=== PATIENT | female | born 1960 | race Caucasian/White ===

== ENCOUNTER 2016-07-30 08:30 | Inpatient (IN) | payer BC ==
--- NOTE | 2016-07-19 17:21 | HP ---
HISTORY AND PHYSICAL: DATE OF ADMISSION/SURGERY: 07/30/16 DATE OF OFFICE VISIT: 07/19/16 SURGEON: Natacha Nova MD PROCEDURE: Right total hip arthroplasty. CHIEF COMPLAINT: Right hip pain. HISTORY OF PRESENT ILLNESS: Ms. Eric is a 56-year-old female with complaints of right hip pain secondary to advanced osteoarthritis. She has failed conservative management and has elected to pr oceed with a right total hip arthroplasty. The surgery is scheduled for 07/30/16. PAST MEDICAL HISTORY: Osteoarthritis, breast cancer. PAST SURGICAL HISTORY: Left-sided mastectomy, right knee arthroscopy, x2. CURRENT MEDICATIONS: 1. Exemestane 25 mg once a day. 2. Meloxicam. 3. Oxycodone. ALLERGIES: To SHELLFISH. FAMILY HISTORY: Lymphoma and Alzheimer's. SOCIAL HISTORY: She is a 56-year-old female. She lives with her . 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 She does not smoke or use drugs. Uses occasional alcohol. REVIEW OF SYSTEMS: A complete 14-point review of systems is reviewed with the patient, all is negat pieter or noncontributory. PHYSICAL EXAMINATION GENERAL: She is well-developed, well-nourished, in no acute distress. VITAL SIGNS: She stands 5 feet and 3 inches tall, weighs 160 pounds. Her blood pressure 132/82 and her heart rate is 85. HEENT: She is normocephalic, atraumatic. NECK: Supple. No palpable lymph nodes. Trachea is midline. PULMONARY: Lungs are clear to auscultation bilaterally. No wheezes, rhonchi, or rales. CARDIO: Regular rate and rhythm. Strong S1 and S2. No murmurs, gallops, or rubs. ABDOMEN: Soft, nontender, nondistended. MUSCULOSKELETAL: Right lower extremity, the skin is intact. She has limited range of motion with i nternal and external rotation of the right hip, and walks with an antalgic-type gait. She is neurov ascularly intact with intact sensation. NEUROLOGICAL: She is alert and oriented x3. Cranial nerves II through XII are intact. ASSESSMENT AND PLAN: Ms. Eric is a 56-year-old female with complaints of right hip pain secon wanda to advanced osteoarthritis. She has failed conservative management and elected to proceed with a right total hip arthroplasty scheduled for 07/30/16. Coumadin was sent to her pharmacy today for postoperative DVT prophylaxis. She was instructed not to take this medication prior to the surgery . She currently has a prescription for both Percocet and Colace, so those prescriptions were not royal ewed at today's visit. She will follow up with Dr. Nova 2 weeks after the surgery. CHRIS KAUFMAN [id number]/[facility] #: [id number]
--- NOTE | 2016-08-26 22:56 | HP ---
HISTORY AND PHYSICAL: DATE OF ADMISSION/SURGERY: 09/03/16 DATE OF OFFICE VISIT: 08/26/16 SURGEON: Natacha Nova MD PROCEDURE: Right total hip arthroplasty. CHIEF COMPLAINT: Hip pain. HISTORY OF PRESENT ILLNESS: Ms. Eric is a 56-year-old female with complaints of right hip pain secondary to advanced osteoarthritis. She has failed conservative management and has elected to proceed with a right total hip arthroplasty, which is scheduled for 09/03/16. PAST MEDICAL HISTORY: Osteoarthritis, breast cancer. PAST SURGICAL HISTORY: Left mastectomy, right knee arthroscopy, x2. CURRENT MEDICATIONS: 1. Exemestane. 2. Meloxicam. 3. Oxycodone. ALLERGIES: SHELLFISH. FAMILY HISTORY: Lymphoma and Alzheimer's. SOCIAL HISTORY: She is a 56-year-old female. She lives with her . 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 She does not smoke or use drugs. She uses occasional alcohol. REVIEW OF SYSTEMS: A complete 14-point review of systems was reviewed with the patient, all is negative and noncontributory. PHYSICAL EXAMINATION GENERAL: She is well developed, well nourished, in no acute distress. VITAL SIGNS: She stands 5 feet 3 inches tall, weighs 165 pounds. Her blood pressure is 136/64, heart rate 68. HEENT: She is normocephalic, atraumatic. NECK: Supple. No palpable lymph nodes. Trachea is midline. PULMONARY: The lungs are clear to auscultation bilaterally. No wheezes, rhonchi, or rales. CARDIO: Regular rate and rhythm. Strong S1, S2. No murmurs, gallops, or rubs. ABDOMEN: Soft, nontender, nondistended. NEUROLOGIC: She is alert and oriented x3. Cranial nerves II through XII are intact. MUSCULOSKELETAL: Right lower extremity, the skin is intact. She has decreased range of motion with internal and external rotation of her right hip. She walks with an antalgic-type gait. She is overall neurovascularly intact. ASSESSMENT AND PLAN: Ms. Eric is a 56-year-old female with complaints of right hip pain secondary to advanced osteoarthritis. She has failed conservative management and has elected to proceed with a right total hip arthroplasty, which is scheduled for 09/03/[address] Nova discussed the risks and benefits of the surgery with her at today's visit and all of her questions were answered. Coumadin and Percocet were sent to her pharmacy for post-operative DVT prophylaxis and pain control. Colace was also sent to help prevent constipation. She will see Dr. Nova back 14 days after the surgery. CHRIS KAUFMAN [id number]/[facility] #: [id number] MTDMarisol
[2016-09-03] MEDS ORDERED: Famotidine IV* 10 MG/ML 2 ML (20 mg) IV ONE (06:00)
[2016-09-03] MEDS ORDERED: Dexamethasone IV* 4 MG/ML 1 ML (4 MG) IV SLOW PU ONE (06:00)
[2016-09-03] MEDS ORDERED: Buffered Lidocaine 1% SYRIN* 3 ML/SYR SYRINGE INTRADERM ONE (06:00)
[2016-09-03] MEDS ORDERED: ceFAZolin 2 GM PREMIX(*) 2 GM/50 ML BAG IVPB ONE (06:59)
[2016-09-03] MEDS ORDERED: Famotidine IV* 10 MG/ML 2 ML (20 mg) ONE (06:59)
[2016-09-03] MEDS ORDERED: Dexamethasone IV* 4 MG/ML 1 ML (4 MG) ONE (06:59)
[2016-09-03] MEDS ORDERED: HYDROmorphone* 1 MG/ML 1 ML SYR ONE ×2 (07:23→09:02)
[2016-09-03] MEDS ORDERED: fentaNYL* 50 MCG/ML 2 ML VIAL (100 MCG VIAL) ONE ×3 (07:23→10:23)
[2016-09-03] MEDS ORDERED: Morphine PF AMP (0.5MG/ML)* 5 MG/10 ML AMP ONE (07:24)
[2016-09-03] MEDS ORDERED: Midazolam* 1 MG/ML 2 ML VIAL (2 MG) ONE (07:24)
[2016-09-03] MEDS ORDERED: Dexmedetomidine* 200 MCG/2 ML 2 ML VIAL ONE (07:27)
[2016-09-03] MEDS ORDERED: Naloxone* 0.4 MG/ML 1 ML VIAL IV PRN (10:40)
[2016-09-03] MEDS ORDERED: oxyCODONE/Acetamin 5/325 MG* TAB PO PRN (10:40)
[2016-09-03] MEDS ORDERED: fentaNYL* 50 MCG/ML 2 ML VIAL (100 MCG VIAL) IV PRN (10:40)
[2016-09-03] MEDS ORDERED: Ondansetron INJ* 2 MG/ML VIAL IV PRN ×2 (10:40)
[2016-09-03] MEDS ORDERED: PROCHLORPERAZINE INJ 5 MG/ML 2 ML VIAL IV PRN ×2 (10:40)
[2016-09-03] MEDS ORDERED: DiMENhydriNATE IV* 50 MG/ML VIAL IV PUSH PRN ×2 (10:40)
[2016-09-03] MEDS ORDERED: diPHENhydraMINE IV* 50 MG/ML 1 ml VIAL (BENADRYL) IV PRN (10:40)
[2016-09-03] MEDS ORDERED: Nalbuphine* 20 MG/ML 1 ML VIAL IV PRN (10:40)
[2016-09-03] MEDS ORDERED: LACTULOSE* 30 ML UDC PO PRN (10:45)
[2016-09-03] MEDS ORDERED: Acetaminophen TAB* 325 MG PO PRN (10:45)
[2016-09-03] MEDS ORDERED: Magnesium Hydroxide LIQ* 30 ML UDC PO PRN (10:45)
[2016-09-03] MEDS ORDERED: Bisacodyl SUPP* 10 MG SUPP PR PRN (10:45)
[2016-09-03] MEDS ORDERED: Morphine INJ* 2 MG/ML 1 ML SYRINGE IV PRN (10:45)
[2016-09-03] MEDS ORDERED: Polyethylene Glycol 3350* 17 GM PACKET PO PRN (10:45)
[2016-09-03] MEDS: Scopolamine 1.5 mg* PATCH TRANSDERM SCH ×2 (10:50→11:20)
[2016-09-03] MEDS ORDERED: Scopolomine PATCH Remove* 1 NOTE MISC PATCH OFF SCH (11:00)
--- NOTE | 2016-09-03 11:16 | RAD ---
HISTORY: Right hip replacement COMPARISONS: June 03, 2016 VIEWS: 1, intraoperative portable view of the right hip at 9:40 AM FINDINGS: Single portable intraoperative view of the right hip demonstrates a right hip plasty with temporal femoral sizing component. IMPRESSION: PORTABLE INTRAOPERATIVE VIEW OF THE RIGHT HIP DURING HIP ARTHROPLASTY
[2016-09-03] MEDS ORDERED: Scopolamine 1.5 mg* PATCH ONE (11:17)
[2016-09-03] MEDS ORDERED: Ondansetron INJ* 2 MG/ML VIAL ONE (11:17)
--- NOTE | 2016-09-03 11:41 | RAD ---
HISTORY: Status post right hip arthroplasty COMPARISONS: June 03, 2016 VIEWS: 3, Frontal view of the pelvis with frontal and frog-leg views of the right hip FINDINGS: BONE DENSITY: Normal. BONES: The patient is status post right hip arthroplasty. There is no hardware failure or osteolysis. JOINTS: The patient is status post right hip arthroplasty. ALIGNMENT: There is no dislocation. SOFT TISSUES: There is post surgical change to the soft tissue OTHER FINDINGS: None. IMPRESSION: STATUS POST RIGHT HIP ARTHROPLASTY
[2016-09-03] MEDS ORDERED: DiMENhydriNATE IV* 50 MG/ML VIAL ONE (11:43)
[2016-09-03] MEDS: ceFAZolin 1 GM in Dextrose (*) 1 GM/50 ML BAG IVPB SCH (16:44)
[2016-09-03] MEDS ORDERED: Warfarin TAB(*) 6 MG PO SCH (17:00)
[2016-09-03] MEDS: Docusate CAP* 100 MG PO SCH (19:38)
[2016-09-04] MEDS: ceFAZolin 1 GM in Dextrose (*) 1 GM/50 ML BAG IVPB SCH ×2 (00:09→07:32)
[2016-09-04] MEDS ORDERED: oxyCODONE TAB* 5 MG TAB PO PRN (02:40)
[2016-09-04] MEDS ORDERED: Ondansetron TAB* 4 MG PO PRN (02:40)
[2016-09-04] MEDS ORDERED: diPHENhydraMINE IV* 50 MG/ML 1 ml VIAL (BENADRYL) IV PRN (02:40)
[2016-09-04] MEDS ORDERED: Ondansetron INJ* 2 MG/ML VIAL IV PRN (02:40)
[2016-09-04] MEDS ORDERED: oxyCODONE/Acetamin 5/325 MG* TAB PO PRN (02:40)
[2016-09-04] MEDS: oxyCODONE/Acetamin 5/325 MG* TAB PO PRN ×5 (02:43→20:24)
[2016-09-04 07:42] LABS: Hematocrit 36 % (35-47)
[2016-09-04 08:41] LABS: BUN/Creatinine Ratio 16.9 (8-20); EGFR African American 91.1 (>60); EGFR Non-African American 70.9 (>60)
--- NOTE | 2016-09-04 09:07 | PN ---
Progress Note - Progress Note SOAP: Subjective: []Patient seen OOB in chair. Doing well, pain well managed. No complaints of dizziness, SOB or CP. Objective: [] Vital Signs Temp 98.3 F 09/04/16 07:08 Pulse 62 09/04/16 07:08 Resp 16 09/04/16 07:31 BP 125/62 09/04/16 07:08 Pulse Ox 99 09/04/16 07:08 Intake & Output 09/03/16 09/04/16 09/04/16 18:59 06:59 18:59 Intake Total 2400 2490 Output Total 650 1350 Balance 1750 1140 Weight 166 lb 3.2 oz Intake: IV Fluids 2400 1662 LR 2400 1662 IVPB 108 Kefzol 108 Oral 720 Output: Brown 400 1350 Estimated Blood Loss 250 Laboratory Results - last 24 hr 09/04/16 09/04/16 09/04/16 07:14 07:16 07:16 Hgb 12.0 Hct 36 INR (Anticoag Therapy) 1.08 Sodium 138 Potassium 4.0 Chloride 105 Carbon Dioxide 27 Anion Gap 6 BUN 14 Creatinine 0.83 Est GFR ( Amer) 91.1 Est GFR (Non-Af Amer) 70.9 BUN/Creatinine Ratio 16.9 Glucose 96 Calcium 9.0 Right hip dressing with 2 small areas of bloody drainage calf is soft and non tender +DF/PF right foot neuro intact distally Assessment: []s/p Right total hip arthroplasty POD #1 Plan: []PT/OT WBAT Right LE Coumadin with Lovenox bridge, 6 mg today Home Friday
[2016-09-04] MEDS: Docusate CAP* 100 MG PO SCH ×2 (09:14→20:24)
[2016-09-04] MEDS: EXEMESTANE 25 MG PO SCH (09:14)
[2016-09-04] MEDS: Enoxaparin(*) 30 MG/0.3 ML SYR SUBCUT SCH (09:15)
[2016-09-04] MEDS ORDERED: Warfarin TAB(*) 6 MG PO SCH (17:00)
--- NOTE | 2016-09-05 00:46 | OP ---
DATE OF OPERATION: 09/03/16 - ROOM #342 DATE OF : 58 SURGEON: Natacha Nova MD FIRE PROTECTION SPECIALIST: CHRIS Pastor ANESTHESIOLOGIST: Jerad Larkin MD ANESTHESIA: Spinal. PRE-OP DIAGNOSIS: Severe end-stage degenerative osteoarthritis of the right hip joint. POST-OP DIAGNOSIS: Severe end-stage degenerative osteoarthritis of the right hip joint. OPERATIVE PROCEDURE: Right total hip arthroplasty. COMPLICATIONS: None. ESTIMATED BLOOD LOSS: 300 cc. SPECIMEN: Femoral head and acetabular reaming, sent to pathology. HARDWARE USED: This is uncemented Kianna total hip arthroplasty hardware. For the cup, a Tritanium hemispherical cluster hole shell 50D, 120 mm cancellous bone screw. For the liner, a Trident X3 0-degree polyethylene insert 32D. For the stem, an Accolade TMZF size 0, 132-degree neck. For the head, a Biolox delta ceramic V40 femoral head, 32 +0. BRIEF HISTORY/INDICATIONS: Ms. Eric is a 56-year-old female with 1 year of severe increasing right hip pain. She failed conservative treatments with antiinflammatories, pain medication, and physical therapy. Radiographs confirmed [id number] osteoarthritis of the right hip joint. Due to continued pain and decreased quality of life, she elected to undergo a right total hip arthroplasty. Informed consent was obtained from the patient. She understood the risks of the procedure included but were not limited to bleeding, infection , damage to nearby structures, continued pain, need for further surgery, intraoperative fracture, dislocation, hardware failure or loosening, nerve palsy , stroke, heart attack, blood clot, and . She wished to proceed. INTRAOPERATIVE FINDINGS: The patient was found to have complete loss of cartilage along the femoral head and acetabulum. Significant osteophyte formation in the acetabulum. DESCRIPTION OF PROCEDURE: Ms. Eric was identified in the preanesthesia unit. Her right lower extremity was marked as the correct operative side. Informed consent was signed and placed in the chart. The patient was taken to the operating room and placed under spinal anesthesia. A Brown catheter was placed. She was placed in the left lateral decubitus position on the peg board and all bony prominences were well padded. The right lower extremity was prepped and draped in the usual sterile fashion. Preop time-out was made to correctly identify the patient, side, and site. Appropriate perioperative antibiotics were given within 1 hour of incision. A 12-cm posterior hip incision was made with a #10 blade and carried down to the lateral fascial layer. Lateral fascia was incised in line with the skin incision. A Charnley retractor was placed. Posterior aspect of the hip joint was now visualized. The conjoined and piriformis tendons were identified and elevated off the posterolateral femur using electro-cautery. These tendons were tagged with two #5 Ethibond's. Next, the electrocautery was used to make a standard posterolateral capsular flap and this was also tagged with two #5 Ethibond's. The hip was carefully dislocated. Femoral head had complete loss of cartilage. Lesser trochanter to center of the femoral head measured 50 mm. Oscillating saw was used to make the appropriate femoral neck cut. The femur was carefully retracted anteriorly. After appropriate placement of retractor, the acetabulum was visualized. A long-handled knife was used to remove any remaining labrum from the acetabular rim. The acetabulum was sequentially reamed up to a size 49. There was a good bleeding bone bed. The 49 trial had good fit. Final implant chosen was a Tritanium 50D cluster hole shell. This was impacted into the acetabulum without difficulty. Satisfactory anteversion abduction angle and stability were obtained. A 120-mm screw was placed in the superoposterior quadrant. Trident X3 0-degree liner 32D was chosen. This was impacted into the acetabulum without difficulty. Stability of the liner was checked and rechecked and noted to be stable. Attention was next turned to the preparation of the femur. Proximal femur was presented and a canal finder was used to enter the proximal femur. A size 0 broach was used to broach the femoral canal and had excellent fit. A 132- degree neck trial and a 32 +0 head trial were used. The hip was reduced. The hip was taken through range of motion and was noted to be stable in all positions. The hip was carefully dislocated. All trials were carefully removed. Final implant chosen was an Accolade TMZF size 0 with a 132-degree neck. This was impacted into the femoral canal without difficulty. There was good stability. A Biolox delta ceramic V40 femoral head, 32 +0 was chosen as a final implant. This was impacted on to the femoral neck without difficulty. The hip was carefully dislocated. The hip was stable in all positions with appropriate leg length and soft tissue tension. The hip was copiously irrigated with sterile saline. Previously tagged capsule and tendons were reapproximated to the posterolateral femur through 2 trochanteric drill holes. The lateral fascial layer was closed using interrupted #1 Vicryl's. The rest of the incision was closed in a layered fashion using 0 and 2-0 Vicryl's. Skin was closed using running 3-0 Monocryl and Dermabond. Sterile Adaptic, 4x4's and paper tape were used to cover the incision. The patient's anesthesia was reversed without difficulty. She was taken to the PACU in stable condition. Intended weight-bearing will be weightbearing as tolerated with posterior hip precautions. Intended DVT prophylaxis will be Coumadin with Lovenox bridge. [id number]/[facility] #: [id number] MTDMarisol
[2016-09-05] MEDS: oxyCODONE/Acetamin 5/325 MG* TAB PO PRN ×3 (02:14→12:45)
[2016-09-05 07:22] LABS: Hematocrit 36 % (35-47); Hemoglobin 11.9 g/dl (12.0-16.0)
--- NOTE | 2016-09-05 07:41 | PN ---
Progress Note - Progress Note SOAP: Subjective: Pt. reports pain is well controlled. Objective: RLE - dressing changed, inc c/d/i. distally nvi. min edema. Vital Signs: Temp Pulse Resp BP Pulse Ox 98.3 F 73 18 116/61 97 09/05/16 03:36 09/05/16 03:36 09/05/16 04:14 09/05/16 03:36 09/05/16 03:36 Laboratory Results - last 24 hr 09/04/16 09/04/16 09/04/16 07:14 07:16 07:16 Hgb 12.0 Hct 36 INR (Anticoag Therapy) 1.08 Sodium 138 Potassium 4.0 Chloride 105 Carbon Dioxide 27 Anion Gap 6 BUN 14 Creatinine 0.83 Est GFR ( Amer) 91.1 Est GFR (Non-Af Amer) 70.9 BUN/Creatinine Ratio 16.9 Glucose 96 Calcium 9.0 09/05/16 07:01 Hgb 11.9 L Hct 36 INR (Anticoag Therapy) Sodium Potassium Chloride Carbon Dioxide Anion Gap BUN Creatinine Est GFR ( Amer) Est GFR (Non-Af Amer) BUN/Creatinine Ratio Glucose Calcium Assessment: 56 yo F pod 2 s/p RTHA Plan: wbat with post hip precautions pt/ot discharge to home today plan ecasa 325 bid x 1 month for dvt proph
[2016-09-05] MEDS: Docusate CAP* 100 MG PO SCH (08:52)
[2016-09-05] MEDS: EXEMESTANE 25 MG PO SCH (08:53)
[2016-09-05] MEDS: Enoxaparin(*) 30 MG/0.3 ML SYR SUBCUT SCH (08:53)
[2016-09-05 15:34] VITALS: BP 143/75
--- NOTE | 2016-09-06 01:26 | DS ---
DISCHARGE SUMMARY: DATE OF ADMISSION: 09/03/16 DATE OF DISCHARGE: 09/05/16 ATTENDING PHYSICIAN: Natacha Nova MD ADMISSION DIAGNOSIS: End-stage osteoarthritis of the right hip. DISCHARGE DIAGNOSIS: End-stage osteoarthritis of the right hip. SURGERY PERFORMED: Right total hip arthroplasty. HOSPITAL COURSE: The patient is a 56-year-old female who had 1 year of severe right hip pain due to end-stage osteoarthritis. The patient failed conservative management including antiinflammatories, pain medications, and physical therapy. Her x-rays revealed [id number] osteoarthritis of the right hip joint. She elected to proceed with surgical intervention. She was taken to the operating room under the care of Dr. Natacha Nova on the date of for the aforementioned procedure. She tolerated the procedure well and left the operating room in stable condition. Post-operatively, she progressed satisfactorily with her physical therapy and occupational therapy goals. She had 1 episode of vomiting on postop day #2 in the morning after receiving Lovenox medication, but had no further instances of this and had no further complications. It was felt she was stable orthopedically and medically for discharge to home on the day of 09/05/16. The patient will continue with her regular home medications. She will continue with Coumadin with a dose of 4 mg on , 09/05/16; 2 mg on 09/06/16; 4 mg on 09/07/16; and 2 mg on . She will have blood draws every Friday and with dosages to follow. She was also given a prescription of Percocet 5/325 mg 1 to 2 tablets p.o. q.3 hours p.r.n. pain. Prescription also sent to her pharmacy at [facility] in [place]. The patient may shower in 2 days. She will avoid bath water, swimming pools, or hot tubs. She will call the office if she has any increased hip pain, swelling, redness, any noted drainage, calf pain or swelling, fever or chills, any noted chest pain, or shortness of breath. Otherwise, she will follow up as scheduled in roughly 10 to 14 days in the office with Dr. Nova. CHRIS CASTRO [id number]/[facility] #: [id number] CHE
== END 2016-09-05 16:30 | disposition home or self-care (01) | DRG 301 ==
LOC: AA 09-03 06:23 → SSU 09-03 10:45
PROVIDERS: ADMIT Orthopaedic Surgery Adult Reconstructive Orthopaedic Surgery; ATTEND Orthopaedic Surgery Adult Reconstructive Orthopaedic Surgery
PROC: 0SR904A Replacement of Right Hip Joint with Ceramic on Polyethylene Synthetic Substitute, Uncemented, Open Approach (ICD-10-PCS; principal; 2016-09-03 08:00)
DX: M16.11 Unilateral primary osteoarthritis, right hip (principal); E66.3 Overweight; M25.751 Osteophyte, right hip; E78.00 Pure hypercholesterolemia, unspecified; Z85.3 Personal history of malignant neoplasm of breast; Z82.49 Family history of ischemic heart disease and other diseases of the circulatory system; Z81.8 Family history of other mental and behavioral disorders; Z80.7 Family history of other malignant neoplasms of lymphoid, hematopoietic and related tissues; Z80.1 Family history of malignant neoplasm of trachea, bronchus and lung; Z87.891 Personal history of nicotine dependence; Z98.51 Tubal ligation status; Z68.29 Body mass index [BMI] 29.0-29.9, adult; Z91.013 Allergy to seafood
CPT/HCPCS: 36415; 72170; 80048; 85014; 85018; 85610; 88304; 88311; A9270-GY; C1713; C1776; J0690; J1100; J1170; J1200; J1240; J1650; J2250; J2405; J3010